=== PATIENT | male | born 1975 | race Hispanic/Latino ===

== ENCOUNTER 2018-07-23 08:43 | Emergency (ER) | payer OTHER ==
[2018-07-23] MEDS ORDERED: Acetaminophen/HYDROcodone 325-5 MG Tab PO ONE (09:06)
[2018-07-23] MEDS ORDERED: Ketorolac 60 MG/2 ML SDV IM ONE (09:06)
--- NOTE | 2018-07-23 09:12 | EDM.PDOC ---
ED HPI GENERAL MEDICAL PROBLEM - General Chief Complaint: Back Pain or Injury Stated Complaint: BACK PAIN Time Seen by Provider: 07/23/18 08:57 - History of Present Illness INITIAL COMMENTS - FREE TEXT/NARRATIVE: HISTORY AND PHYSICAL: History of present illness: The patient is a 43-year-old male with no pre-existing medical problems and a history of intermittent episodes of back pain but no known diagnosis and who follows at [facility] with Dr. Alicea and no presents with right-sided back pain that started this morning when he was bending over doing dishes. He says he has had episodes of back pain in the past but did not require provider evaluation but this was different. He bent over and suddenly felt the pain but it did not radiate to his legs. He says it is uncomfortable to stand and he feels better sitting and the pain worsens with movements. The patient has no bowel or bladder disturbances and in fact had a bowel movement after the pain started and had no difficulties. He has no flank pain no hematuria or dysuria and no abdominal complaints. He says he has some numbness in his buttocks bilaterally but that is only just started recently and was not initially present. He says he is much more comfortable sitting. He has no weakness in his legs and no tingling and the pain does not radiate to his legs. The patient has not taken any medications [id number] for this pain. The patient did not fall or have any direct trauma to his back Review of systems: As per history of present illness and below otherwise all systems reviewed and negative. Past medical history: As per history of present illness and as reviewed below otherwise noncontributory. Surgical history: As per history of present illness and as reviewed below otherwise noncontributory. Social history: No reported history of drug or alcohol abuse. Family history: As per history of present illness and as reviewed below otherwise noncontributory. Physical exam: General: Well-developed well-nourished man who is comfortable sitting with his legs hanging on the bed but is uncomfortable with any movements. Vital signs are noted by me HEENT: Atraumatic, normocephalic, , negative for conjunctival pallor or scleral icterus, mucous membranes moist, throat clear, neck supple, nontender, trachea midline. Lungs: Clear to auscultation, breath sounds equal bilaterally, chest nontender. Heart: S1S2, regular and rhythm no overt murmurs Abdomen: Soft, nondistended, nontender. NABS Negative for costovertebral tenderness. Pelvis: Stable nontender. Genitourinary: Deferred. Rectal: Deferred. Extremities: Atraumatic, negative for cords or calf pain. Neurovascular unremarkable. Full range of motion without defects or deficits Neuro: Awake, alert, oriented. Cranial nerves II through XII unremarkable. Cerebellum unremarkable. Motor and sensory unremarkable throughout. Exam nonfocal. The tele-reflexes are +2 over 4 bilaterally and dorsi and plantar flexion is 5/5 bilaterally inclusive of the great toe. Inversion and eversion of the feet is intact. Patient's gait was normal into the ED but slowed. Back: There are no midline step-offs tenderness defects of the thoracic or lumbar spine no CVA tenderness and there is some minimal SI joint tenderness on the right and also some minimal paraspinal tenderness on the right in the lumbosacral area. Diagnostics: LS-spine x-rays Therapeutics: Toradol Norflex [place] I told the patient that he would need to be following up with his provider at [facility] over the next few days as this pain will likely improve as from my evaluation it is more deep back musculature but he may need more imaging going forward. He states understanding. Impression: Acute lumbar back pain Definitive disposition and diagnosis as appropriate pending reevaluation and review of above. Lower Back Pain Score (Numeric/FACES): 6 - Related Data Allergies Allergy/AdvReac Type Severity Reaction Status Date / Time No Known Allergies Allergy Verified 07/23/18 09:01 Home Meds: Home Meds . [No Known Home Meds] 07/23/18 [History] Past Medical History - Past Health History Medical/Surgical History: Denies Medical/Surgical History - Infectious Disease History Infectious Disease History: Reports: Chicken Pox Social & Family History - Family History Family Medical History: Noncontributory - Tobacco Use Smoking Status *Q: Never Smoker - Recreational Drug Use Recreational Drug Use: No ED ROS GENERAL - Review of Systems Review Of Systems: ROS reveals no pertinent complaints other than HPI. ED EXAM, GENERAL - Physical Exam Exam: See Below (See dictation) Course - Vital Signs Last Recorded V/S: Last Vital Signs Temp 36.6 C 07/23/18 08:58 Pulse 70 07/23/18 08:58 Resp 18 07/23/18 08:58 BP 148/93 H 07/23/18 08:58 Pulse Ox 98 07/23/18 08:58 - Orders/Labs/Meds Orders: Active Orders 24 hr Category Date Time Status Lumbar Spine 2 or 3V [CR] Stat Exams 07/23/18 09:06 Taken Meds: Medications Discontinued Medications Generic Name Dose Route Start Last Admin Trade Name Glenny PRN Reason Stop Dose Admin Hydrocodone Bitart/Acetaminophen 1 tab 07/23/18 09:06 07/23/18 09:35 [place] 325-5 Mg PO 07/23/18 09:07 1 tab ONETIME ONE Administration Ketorolac Tromethamine 60 mg 07/23/18 09:06 07/23/18 09:30 Toradol IM 07/23/18 09:07 60 mg ONETIME ONE Administration Orphenadrine Citrate 60 mg 07/23/18 09:06 07/23/18 09:30 Norflex IM 07/23/18 09:07 60 mg ONETIME ONE Administration Departure - Departure Time of Disposition: 10:39 Disposition: Home, Self-Care 01 Condition: Good Clinical Impression: Lumbar back pain - Discharge Information Instructions: Back Pain, Adult, [id number] Referrals: Dayan Alicea DO [Primary Care Provider] - Forms: ED Department Discharge Additional Instructions: The following information is given to patients seen in the emergency department who are being discharged to home. This information is to outline your options for follow-up care. We provide all patients seen in our emergency department with a follow-up referral. The need for follow-up, as well as the timing and circumstances, are variable depending upon the specifics of your emergency department visit. If you don't have a primary care physician on staff, we will provide you with a referral. We always advise you to contact your personal physician following an emergency department visit to inform them of the circumstance of the visit and for follow-up with them and/or the need for any referrals to a consulting specialist. The emergency department will also refer you to a specialist when appropriate. This referral assures that you have the opportunity for followup care with a specialist. All of these measure are taken in an effort to provide you with optimal care, which includes your followup. Under all circumstances we always encourage you to contact your private physician who remains a resource for coordinating your care. When calling for followup care, please make the office aware that this follow-up is from your recent emergency room visit. If for any reason you are refused follow-up, please contact the [facility] emergency department at and ask to speak to the emergency department charge nurse. [address] [place] [address] Please contact your provider at [facility] and schedule a follow-up appointment. Rest and expect this pain to slowly improve over the next 1-2 weeks. You may use ice or heat as you choose for comfort and use all medications as prescribed and needed. If you take the muscle relaxers please only take them when you're at home. Return to ER as needed and as we discussed - My Orders Last 24 Hours: My Active Orders 07/23/18 09:06 Lumbar Spine 2 or 3V [CR] Stat - Assessment/Plan Last 24 Hours: My Active Orders 07/23/18 09:06 Lumbar Spine 2 or 3V [CR] Stat
--- NOTE | 2018-07-23 15:53 | CR ---
EXAM DATE: 07/23/18 PATIENT'S AGE: 43 Patient: SALMA VARGAS Facility: [place], [place] Site . Site : [id number] Study: XRay Spine Lumbar [id number] 10:17:40 AM Ordering Physician: Sharon Gandhi Final Report: INDICATION: Low back pain. COMPARISON: None. TECHNIQUE: Three-view study lumbosacral spine. FINDINGS: Reversal of the normal lumbar lordosis. No evidence of fracture or dislocation. No spondylolysis or spondylolisthesis. IMPRESSION: 1. Reversal of the normal lumbar lordosis. 2. No fracture or dislocation. Dictated by Elsy Garvey MD @ Jul 23 2018 10:31AM (Electronic Signature) Report Signed by Proxy. AMANDA
== END 2018-07-23 10:56 | disposition home or self-care (01) ==
LOC: MW.ED 08:43
DX: M54.5 Low back pain (principal)
CPT/HCPCS: 72100; 96372; 99283; A9270; J1885; J2360